=== PATIENT | male | born 1955 | race Caucasian/White ===

== ENCOUNTER 2018-06-22 04:33 | Emergency (ER) | payer OTHER ==
[~2018-06-22] VITALS: Ht 180.3 cm; Wt 88.5 kg
[2018-06-22 05:01] LABS: ABSOLUTE BASOPHILS 0.1 thou/uL (0.0-0.2); ABSOLUTE LYMPHOCYTES 1.4 thou/uL (0.8-5.3); ABSOLUTE MONOCYTES 0.5 thou/uL (0.0-1.2); ABSOLUTE NEUTROPHILS 9.7 thou/uL (1.6-8.1); BASOPHILS 0.7 %; EOSINOPHILS 0.4 %; HEMATOCRIT 45.5 % (42.0-52.0); HEMOGLOBIN 15.1 gm/dL (14.0-18.0); LYMPHOCYTES 11.7 %; MCH 31.7 pg (26.0-34.0); MCHC 33.3 g/dL (28.0-37.0); MCV 95.3 fL (80.0-100.0); MONOCYTES 4.3 %; MPV 6.6 fl. (7.2-11.1); NUCLEATED RBCS 0 /100WBC; PLATELET COUNT* 246 thou/uL (150-400); POLYS 82.9 %; RBC 4.77 mil/uL (4.50-6.00); RDW-CV 13.9 % (10.5-14.5); WBC 11.7 thou/uL (4.0-11.0)
[2018-06-22 05:09] LABS: ANION GAP 10 mmol/L (7-16); BUN 17 mg/dL (7-18); CALCIUM 8.3 mg/dL (8.5-10.1); CHLORIDE 105 mmol/L (98-107); CO2 25 mmol/L (21-32); CREATININE 0.9 mg/dL (0.6-1.3); GLUCOSE 136 mg/dL (70-99); POTASSIUM 3.6 mmol/L (3.5-5.1); SODIUM 140 mmol/L (136-145)
[2018-06-22 05:12] LABS: APTT 26.1 Seconds (25.0-31.3); INR 0.9; PROTIME 9.6 Seconds (9.20-11.50)
[2018-06-22 05:24] LABS: ALBUMIN 3.6 g/dL (3.4-5.0); ALKALINE PHOSPHATASE 92 U/L (46-116); NT-PRO BRAIN NAT PEPTIDE 65 pg/mL (<300); SGOT 17 U/L (15-37); SGPT 23 U/L (30-65); TOTAL BILIRUBIN 0.2 mg/dL (<0.1-1.0); TROPONIN-I LEVEL <0.06 ng/mL (<0.06)
[2018-06-22 08:40] VITALS: BP 158/65
--- NOTE | 2018-06-22 10:38 | EKG ---
[place] [address] ELECTROCARDIOGRAM REPORT Name: LAWRENCEAGNELA BRIANNA [id number] Admission: 06/22/18 Attend Phys: Discharge: 06/22/18 Date of : 53 Report #: [id number] THIS REPORT FOR: //name// [facility] ED Test Date: 2018-06-22 Test Time: 04:39:12 Pat Name: ANGELA BRAVO Department: Room: Gender: M Chicken Handler: VAISHNAVI : 1955 Requested By: Too Lopez Order Number: [id number] MD: Luke Street Measurements Intervals [place] Rate: 81 P: 69 DE: 163 QRS: 16 QRSD: 96 T: 57 QT: 404 QTc: 469 Interpretive Statements Sinus arrhythmia Probable left atrial enlargement RSR' in V1 or V2, probably normal variant Minimal ST elevation, anterior leads No previous ECG available for comparison Electronically Signed On 06-22-2018 10:38:20 SCRAP WORKER by Luke [address] [email or web address] <ELECTRONICALLY SIGNED> By: Luke Street MD, [facility] 06/22/18 [address] MD, FACC /EPI
== END 2018-06-22 09:25 | disposition short-term general hospital (02) ==
LOC: M.ERS 04:33
PROVIDERS: Emergency Medicine Emergency Medical Services
DX: I63.9 Cerebral infarction, unspecified (principal); F17.210 Nicotine dependence, cigarettes, uncomplicated

== ENCOUNTER 2020-02-11 10:58 | Emergency (ER) | payer MEDICARE ==
[~2020-02-11] VITALS: Ht 180.3 cm; Wt 93.0 kg
[2020-02-11] MEDS ORDERED: LISINOPRIL2.5 MG PO (11:16)
[2020-02-11] MEDS ORDERED: KEFLEX500 M1 PO ×2 (13:07→15:54)
[2020-02-11] MEDS ORDERED: TYLENOL WITH CO1 TA1 PO (13:08)
[2020-02-11 16:51] VITALS: BP 177/156
--- NOTE | 2020-02-12 13:22 | CON ---
[address] [address] CONSULTATION Name: ANGELA BRAVO JR Room: [facility]#: [id number] Admission: 02/11/20 Attend Phys: Discharge: 02/11/20 Date of : 53 Report #: [id number] THIS REPORT FOR: //name// cc: SIMONA - No family physician/PCP SIMONA - No family physician/PCP ~ THIS REPORT FOR: //name// CC: [facility] physician/PCP Mello Fan DICTATED BY: jE Johnson DO DATE OF SERVICE: 02/11/2020 EMERGENCY DEPARTMENT OUTPATIENT CONSULTATION CHIEF COMPLAINT: Foreign body, left index finger. HISTORY OF PRESENT ILLNESS: A 64-year-old right hand dominant male who presents to the [facility] Emergency Department after he shot a finishing nail into his left index finger. The patient works as a satellite tv installer and states that initially he had immediate onset of pain; however, he was able to continue working. He did develop some stiffness and swelling of the finger today difficulty with flexing the finger. He denies any numbness, tingling, loss of sensation of the left upper extremity. Denies any previous traumas, injuries or surgeries to the left hand. He denies any nausea, vomiting, fever, chills, redness or streaking of the left upper extremity. States that it is worse today as the pain is approximately 6/10 in severity. He has been taking nonsteroidal anti-inflammatories as needed for pain. PAST MEDICAL HISTORY: None. CURRENT MEDICATIONS: Lisinopril 2.5 mg. SOCIAL HISTORY: He is a 1.5 pack a day smoker. Denies alcohol or recreational drug use. REVIEW OF SYSTEMS: A 15-point review of systems was obtained and negative except for the above-mentioned in HPI. PHYSICAL EXAMINATION: GENERAL: Alert and oriented, in no acute distress. HEENT: Normocephalic, atraumatic. PERRL, EOMI. NECK: Trachea midline. No deviation. Moist oral and nasal mucosa. RESPIRATORY: Symmetrical chest wall expansion. No signs [place] [address] CONSULTATION Name: ANGELA BRAVO JR Room: [facility]#: [id number] Admission: 02/11/20 Attend Phys: Discharge: 02/11/20 Date of : 53 Report #: [id number] CARDIOVASCULAR: Regular rate. Brisk cap refill less than 3 seconds. Pulses are 2+ and equal radial arteries bilaterally. MUSCULOSKELETAL: Left index finger demonstrates a puncture wound over the P1 aspect of the volar aspect of his hand. There is an entry site. He is significantly tender to palpation over this area. He is able to actively flex and extend his fingers throughout all joints; however, decreased range due to pain and swelling. He has motor and sensory intact. AIN, PIN and ulnar nerves are soft and compressible. Brisk capillary refill less than 3 seconds. He is not demonstrating any significant erythema, warmth, drainage or proximal streaking. The foreign body is unable to be visualized at this point in time. NEUROLOGIC: Cranial nerves 2-12 are intact. Normal speech. Alert and oriented, in no acute distress. PSYCHIATRIC: Appropriate mood and cognition cooperative. IMAGING: X-rays, AP, lateral and oblique views of the left hand demonstrates a metallic foreign body in a hook shape overlying the area of the P1 of the index finger. However, it does not demonstrate any fracture of the P1. IMPRESSION: Left index finger P1 foreign body. PLAN: At this time, we had a lengthy discussion with the patient about his clinical, physical, and radiographic exam. He does demonstrate a metallic hook shape foreign body in his finger. We stated that this could continue to cause swelling as well as decreased range of motion of the finger. We do recommend a foreign body removal. We stated that this could be done currently in the Emergency Department or formally in the operating room. The patient does state that he desires to have it out today in the Emergency Department. We stated that the patient does demonstrate full active and passive range of motion of his fingers and we do feel that he has not sustained a significant flexor tendon injury at the present time. We did discuss the risks and benefits, treatment options, alternatives, complications, indications, risks include, but not limited to damage to surrounding neurovascular structures, continued pain, continued bleeding, need for repeat surgery, wound dehiscence, infection, numbness and tingling of the finger. The patient assumed the risks and wished to proceed with the procedure; therefore, the left index finger digital block was performed with approximately 10 mL of 1% lidocaine and then when the patient was adequately numb, the finger was sterilely prepped with Hibiclens scrub followed by alcohol rinse and then ChloraPrep. An 11 blade scalpel was used to incise the proximal aspect of the index finger in a diagonal fashion, at which point scissors were used to spread the subcutaneous fat tissue and the metallic object was able to be visualized and was able to be grasped with a hemostat. The metallic foreign body was unable to be removed from the hand, but following the curve of the hook shaped while pulling it from the wound. The patient wants removal of the foreign body. The patient was asked to range of motion of his fingers again. He was able to initiate range of motion actively and passively with full flexion and extension of all digits. There is no flexor tendon injury [address] [address] CONSULTATION Name: ANGELA BRAVO Room: [facility]#: [id number] Admission: 02/11/20 Attend Phys: Discharge: 02/11/20 Date of : 53 Report #: [id number] able to be visualized. The wound was then closed utilizing 4-0 nylon in simple interrupted fashion followed by dressing of Xeroform, 4 x 4's, a Funmi wrap and tape. The patient was recommended to follow up in approximately 2 weeks for reevaluation and suture removal at that time. He was stated the patient to keep dressing clean, dry and intact for approximately 48-72 hours, then he can remove and replace with a waterproof Band-Aid. He can shower; however, not submerge his hand 48-72 hours. We do also recommend to the Emergency Department staff that he will be prescribed the antibiotic to take for approximately 10 days as prophylaxis. The patient fully understands and agrees with this plan. <ELECTRONICALLY SIGNED> By: Mao Nava DO 02/12/20 1322 1605 [id number] Nava DO /nt
== END 2020-02-11 16:51 | disposition home or self-care (01) ==
LOC: M.ERS 10:58
DX: S61.241A Puncture wound with foreign body of left index finger without damage to nail, initial encounter (principal); F17.210 Nicotine dependence, cigarettes, uncomplicated; X58.XXXA Exposure to other specified factors, initial encounter; Y93.89 Activity, other specified; Y92.89 Other specified places as the place of occurrence of the external cause; Y99.8 Other external cause status